=== PATIENT | male | born 1965 | race African-American/Black ===

== ENCOUNTER 2016-11-21 14:35 | Emergency (ER) | payer SELFPAY ==
[~2016-11-21] VITALS: Ht 177.8 cm; Wt 75.0 kg
[2016-11-21 14:41] VITALS: BP 151/100; PULSE 72; RESP 20; TEMP 97.7; O2SAT 99
--- NOTE | 2016-11-21 14:45 | PD ---
Physical Exam Date Seen by Provider: Nov 21, 2016 Time Seen by Provider: 14:44 Narrative 51 yo male here for epigastric abdominal pain. Comes by [facility] to triage. has had this pain before. pain is 7/10. N/V. No BM issues. History of ulcers. Feels similar. No bleeding. History CAD. Vitals are stable in triage. Awaiting bed placement. Data Data Last Documented VS Vital Signs Date Time Temp Pulse Resp B/P Pulse Ox O2 Delivery O2 Flow Rate FiO2 11/21/16 14:41 97.7 72 20 151/100 99 Room Air [facility] Medical Record Reviewed: Yes Supervised Visit with KAYE: No Scripts No Active Prescriptions or Reported Meds Randy Larson Nov 21, 2016 14:45
[2016-11-21 15:24] VITALS: BP 133/96; PULSE 60; RESP 16; O2SAT 99
[2016-11-21] MEDS ORDERED: SODIUM CHLOR 0.9% 1000 ML INJ 1,000 ML IV SCH (15:35)
[2016-11-21] MEDS ORDERED: ONDANSETRON HCL 4 MG/2 ML VIAL IVP ONE (15:45)
[2016-11-21] MEDS ORDERED: SODIUM CHLORIDE 0.9% FLUSH 10 ML FLUSH IV FLUSH PRN (15:45)
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
[2016-11-21 16:40] LABS: AUTOMATED NEUTROPHIL # 3.7 TH/MM3 (1.8-7.7); BASOPHIL # 0.1 TH/MM3 (0-0.2); BASOPHIL % 0.8 % (0.0-2.0); EOSINOPHIL # 0.3 TH/MM3 (0-0.4); EOSINOPHIL % 4.2 % (0.0-4.0); HEMO FLAGS DIFF FINAL; LYMPH % 27.4 % (9.0-44.0); LYMPHOCYTE # 1.7 TH/MM3 (1.0-4.8); MEAN CELL VOLUME 95.3 FL (80.0-100.0); MEAN CORPUSCULAR HGB CONC 33.6 % (32.0-36.0); MONO % 9.1 % (0.0-8.0); NEUT % 58.5 % (16.0-70.0); PLATELET COUNT 326 TH/MM3 (150-450); RED BLOOD COUNT 5.14 MIL/MM3 (4.50-5.90); RED CELL DISTRIBUTION WIDTH 13.1 % (11.6-17.2); WHITE BLOOD COUNT 6.3 TH/MM3 (4.0-11.0)
[2016-11-21] MEDS ORDERED: PANTOPRAZOLE SODIUM 40 MG VIAL IV PUSH ONE (16:45)
[2016-11-21 16:51] LABS: APTT (PATIENT) 29.3 SEC (24.3-30.1); INTERNATIONAL NORMALIZED RATIO 0.9 RATIO; PROTHROMBIN TIME - PATIENT 10.1 SEC (9.8-11.6)
[2016-11-21 17:05] LABS: ALKALINE PHOSPHATASE 93 U/L (45-117); TOTAL BILIRUBIN ADULT 0.4 MG/DL (0.2-1.0)
--- NOTE | 2016-11-21 17:05 | PD ---
Data Data Last Documented VS Vital Signs Date Time Temp Pulse Resp B/P Pulse Ox O2 Delivery O2 Flow Rate FiO2 11/21/16 15:24 60 16 133/96 99 Room Air 11/21/16 14:41 97.7 Orders Complete Blood Count With Diff (11/21/16 15:35) Comprehensive Metabolic Panel (11/21/16 15:35) Lipase (11/21/16 15:35) Prothrombin Time / Inr (Pt) (11/21/16 15:35) Act Partial Throm Time (Ptt) (11/21/16 15:35) Urinalysis - C+S If Indicated (11/21/16 15:35) Ct Abd/Pel W Iv Contrast(Rout) (11/21/16 15:35) Iv Access Insert/Monitor (11/21/16 15:35) Ecg Monitoring (11/21/16 15:35) Oximetry (11/21/16 15:35) Ondansetron Inj (Zofran Inj) (11/21/16 15:45) Sodium Chlor 0.9% 1000 Ml Inj (Ns 1000 M (11/21/16 15:35) Sodium Chloride 0.9% Flush (Ns Flush) (11/21/16 15:45) Electrocardiogram (11/21/16 15:35) Creatine Kinase (Cpk) (11/21/16 15:36) Troponin I (11/21/16 15:36) Pantoprazole Inj (Protonix Inj) (11/21/16 16:45) Labs Laboratory Tests Test 11/21/16 16:10 White Blood Count 6.3 TH/MM3 Red Blood Count 5.14 MIL/MM3 Hemoglobin 16.5 GM/DL Hematocrit 49.0 % Mean Corpuscular Volume 95.3 FL Mean Corpuscular Hemoglobin 32.0 PG Mean Corpuscular Hemoglobin 33.6 % Concent Red Cell Distribution Width 13.1 % Platelet Count 326 TH/MM3 Mean Platelet Volume 8.3 FL Neutrophils (%) (Auto) 58.5 % Lymphocytes (%) (Auto) 27.4 % Monocytes (%) (Auto) 9.1 % Eosinophils (%) (Auto) 4.2 % Basophils (%) (Auto) 0.8 % Neutrophils # (Auto) 3.7 TH/MM3 Lymphocytes # (Auto) 1.7 TH/MM3 Monocytes # (Auto) 0.6 TH/MM3 Eosinophils # (Auto) 0.3 TH/MM3 Basophils # (Auto) 0.1 TH/MM3 CBC Comment DIFF FINAL Differential Comment Prothrombin Time 10.1 SEC Prothromb Time International 0.9 RATIO Ratio Activated Partial 29.3 SEC Thromboplast Time MDM Supervised Visit with KAYE: Yes Narrative Course The history, exam, and medical decision-making in the associated mid-level provider note were completed with my assistance. I reviewed and agree with the findings presented. I attest that I had a [id number] encounter with the patient on the same day, and personally performed and documented my assessment and findings in the medical record. *My assessment and Findings: 51-year-old male presents to the emergency department when of epigastric abdominal pain rating to his chest. He has epigastric tenderness. Is a history of peptic ulcer disease treated with fasciotomy and gastrectomy. He has had trouble since then. He does drink alcohol daily. No NSAIDs. He describes vomiting and also dark colored stools. Guaiac was negative here. He looks overall well. We'll check labs, recommend PPI, outpatient follow-up. Scripts No Active Prescriptions or Reported Meds Markie Mo MD Nov 21, 2016 17:05
[2016-11-21 17:07] LABS: ALT (GPT) 24 U/L (12-78); ANION GAP 4 MEQ/L (5-15); AST (GOT) 19 U/L (15-37); BICARBONATE 29.9 MEQ/L (21.0-32.0); BLOOD UREA NITROGEN 9 MG/DL (7-18); CHLORIDE 106 MEQ/L (98-107); CREATINE KINASE 165 U/L (39-308); GLOMERULAR FILTRATION RATE 86 ML/MIN (>89); POTASSIUM 4.2 MEQ/L (3.5-5.1); SODIUM (NA) 140 MEQ/L (136-145)
[2016-11-21] MEDS ORDERED: IOHEXOL 350 MG/ML 10 ML VIAL (for RAD DIAG) IV ONE (17:37)
--- NOTE | 2016-11-21 17:48 | RADRPT ---
EXAM DATE/TIME: 11/21/2016 17:23 [facility] COMPARISON: No previous studies available for comparison. INDICATIONS : Evaluate for diffuse abdomen pain. IV CONTRAST: 100 cc Omnipaque 350 (iohexol) IV ORAL CONTRAST: No oral contrast ingested. RADIATION DOSE: 9.96 CTDIvol (mGy) MEDICAL HISTORY : Ulcers. SURGICAL HISTORY : Gastrectomy because of ulcers, partial bobectomy ENCOUNTER: Initial ACUITY: 1 week PAIN SCALE: 7/10 LOCATION: Bilateral upper quadrant TECHNIQUE: Volumetric scanning of the abdomen and pelvis was performed. Using automated exposure control and ad justment of the mA and/or kV according to patient size, radiation dose was kept as low as reasonably achievable to obtain optimal diagnostic quality images. DICOM format image data is available electro nically for review and comparison. FINDINGS: The lung base is are clear. There is no pericardial effusion. The liver is free of focal defects. Posterior previous gastric surgery is noted. The spleen and pancreas are unremarkable. The adrenal glands appear normal. There is symmetrical renal function. Moderate gas distention of the large bowel is present with air and stool throughout the colon. There is no significant small bowel dilatation. Pelvic contents are unremarkable. There is no ascites or adenopathy appreciated. I don't see reason for the patient's abdominal pain. End CONCLUSION: 1. Evidence for previous gastric surgery with nonspecific bowel gas pattern. 2. There is no ascites. 3. There is no free air or obstruction. 4. There is no renal stone. Luis A Weaver MD FACR on November 21, 2016 at 17:40 Board Certified Radiologist. This report was verified electronically.
[2016-11-21 17:57] LABS: BLOOD, URINE NEG (NEG); COMMENT (UR) CULT NOT INDICATED; CULTURE IF INDICATED CULT NOT INDICATED; GLUCOSE,URINE NEG (NEG); KETONE, URINE NEG (NEG); MUCUS URINE FEW /lpf (OCC); NITRITE,URINE NEG (NEG); URINE COLOR YELLOW (YELLW/STRAW)
[2016-11-21] MEDS ORDERED: PROT40TA PO (18:15)
[2016-11-21] MEDS ORDERED: ONDA4TAB7 SL (18:15)
--- NOTE | 2016-11-22 08:01 | EKG ---
Date Performed: 11/21/2016 Time Performed: 15:52:57 PTAGE: 51 years EKG: SINUS BRADYCARDIA ST ELEVATION, PROBABLY EARLY REPOLARIZATION BORDERLINE ECG PREVIOUS TRACING : 11/29/2015 07.53 DOCTOR: Armond Barragan Interpretating Date/Time 11/22/2016 07:56:35
== END 2016-11-21 18:50 | disposition home or self-care (01) ==
LOC: NEPD 14:35
DX: R10.84 Generalized abdominal pain (principal); R00.1 Bradycardia, unspecified; I10 Essential (primary) hypertension; F17.200 Nicotine dependence, unspecified, uncomplicated
CPT/HCPCS: 74177; 80053; 81001; 82550; 83690; 84484; 85025; 85610; 85730; 93005; 96361; 96374; 96375; 99285; C9113; J2405; J7030; Q9967

== ENCOUNTER 2016-11-25 10:43 | Emergency (ER) | payer SELFPAY ==
[~2016-11-25 10:43] MED LIST: ONDA4TAB7 SL; PROT40TA PO
[2016-11-25 10:50] VITALS: BP 113/64; PULSE 84; RESP 18; TEMP 97.8; O2SAT 98
[2016-11-25] MEDS ORDERED: SODIUM CHLORID 0.9% 500 ML INJ 500 ML IV ONE (11:15)
[2016-11-25 11:16] VITALS: RESP 18; O2SAT 98
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
[2016-11-25] MEDS: SODIUM CHLORIDE 0.9% FLUSH 10 ML FLUSH IVF PRN ×2 (11:20→12:16)
[2016-11-25 11:22] VITALS: BP_SYST 118; BP_SYST 127; BP_DIAS 67; BP_DIAS 71; PULSE 63; RESP 17; O2SAT 98
[2016-11-25 11:35] LABS: AUTOMATED NEUTROPHIL # 3.5 TH/MM3 (1.8-7.7); BASOPHIL % 0.6 % (0.0-2.0); EOSINOPHIL # 0.1 TH/MM3 (0-0.4); EOSINOPHIL % 2.1 % (0.0-4.0); HEMATOCRIT 45.7 % (39.0-51.0); HEMO FLAGS DIFF FINAL; LYMPH % 22.7 % (9.0-44.0); LYMPHOCYTE # 1.2 TH/MM3 (1.0-4.8); MEAN CELL VOLUME 94.4 FL (80.0-100.0); MEAN CORPUSCULAR HEMOGLOBIN 32.2 PG (27.0-34.0); MEAN CORPUSCULAR HGB CONC 34.1 % (32.0-36.0); MONO % 9.7 % (0.0-8.0); NEUT % 64.9 % (16.0-70.0); PLATELET COUNT 297 TH/MM3 (150-450); RED BLOOD COUNT 4.84 MIL/MM3 (4.50-5.90); RED CELL DISTRIBUTION WIDTH 13.1 % (11.6-17.2); WHITE BLOOD COUNT 5.3 TH/MM3 (4.0-11.0)
--- NOTE | 2016-11-25 11:41 | RADRPT ---
EXAM DATE/TIME: 11/25/2016 11:33 [facility] COMPARISON: CHEST SINGLE AP, November 29, 2015, 2:04. INDICATIONS : Chest pain MEDICAL HISTORY : gastric ulcers SURGICAL HISTORY : Partial left lung lobectomy ENCOUNTER: Initial ACUITY: 1 day PAIN SCORE: 5/10 LOCATION: Bilateral chest FINDINGS: A single view of the chest demonstrates the lungs to be symmetrically aerated without evidence of mas s, infiltrate or effusion. The cardiomediastinal contours are unremarkable. Osseous structures are intact. CONCLUSION: No acute disease. Elroy Galvan MD on November 25, 2016 at 11:38 Board Certified Radiologist. This report was verified electronically.
[2016-11-25 11:47] LABS: APTT (PATIENT) 31.4 SEC (24.3-30.1); PROTHROMBIN TIME - PATIENT 11.1 SEC (9.8-11.6)
[2016-11-25 11:58] LABS: ANION GAP 7 MEQ/L (5-15); BICARBONATE 28.2 MEQ/L (21.0-32.0); BLOOD UREA NITROGEN 16 MG/DL (7-18); CHLORIDE 104 MEQ/L (98-107); GLOMERULAR FILTRATION RATE 85 ML/MIN (>89); MAGNESIUM 2.3 MG/DL (1.5-2.5); POTASSIUM 3.9 MEQ/L (3.5-5.1); SODIUM (NA) 139 MEQ/L (136-145)
[2016-11-25 12:02] LABS: CREATINE KINASE 202 U/L (39-308)
[2016-11-25 12:15] LABS: CKMB 1.8 NG/ML (0.5-3.6)
[2016-11-25 14:00] VITALS: BP 120/74; PULSE 78; RESP 16; TEMP 97.8; O2SAT 98
[2016-11-25 14:41] LABS: AMPHETAMINE, URINE NEG (NEG); BARBITURATES, URINE NEG (NEG); COCAINE, URINE POS (NEG)
[2016-11-25 15:09] VITALS: BP 120/77; TEMP 97.8
--- NOTE | 2016-11-26 14:55 | EKG ---
Date Performed: 11/25/2016 Time Performed: 10:54:46 PTAGE: 51 years EKG: Sinus rhythm POSSIBLE RIGHT ATRIAL ENLARGEMENT ST ELEVATION, PROBABLY EARLY REPOLARIZATION Since previous tracing , no significant change noted BORDERLINE ECG PREVIOUS TRACING : 11/21/2016 15.52 DOCTOR: Panfilo Johnson Interpretating Date/Time 11/26/2016 14:53:40
== END 2016-11-25 15:10 | disposition home or self-care (01) ==
LOC: NEPC 10:43
DX: R07.89 Other chest pain (principal); F14.10 Cocaine abuse, uncomplicated; F17.210 Nicotine dependence, cigarettes, uncomplicated; I10 Essential (primary) hypertension
CPT/HCPCS: 71010; 80048; 80307; 82550; 82552; 83735; 84484; 85025; 85610; 85730; 93005; 96360; 99285; J7040

== ENCOUNTER 2017-08-09 16:00 | Emergency (ER) | payer SELFPAY ==
[~2017-08-09] VITALS: Ht 182.9 cm; Wt 70.0 kg
[2017-08-09 18:02] VITALS: BP 133/73; PULSE 70; RESP 16; TEMP 97.6; O2SAT 95
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
[2017-08-09 18:28] VITALS: BP 138/88; PULSE 108; RESP 19; O2SAT 98
[2017-08-09] MEDS ORDERED: ACETAMINOPHEN 325 MG TAB PO ONE (19:00)
[2017-08-09 19:03] VITALS: BP 149/90
== END 2017-08-09 19:10 | disposition home or self-care (01) ==
LOC: NEPD 16:00
DX: T40.2X1A Poisoning by other opioids, accidental (unintentional), initial encounter (principal); F17.200 Nicotine dependence, unspecified, uncomplicated
CPT/HCPCS: 99283